=== PATIENT | male | born 1950 | race Caucasian/White ===

== ENCOUNTER → 2016-12-31 | Outpatient (CLI) | payer MEDICARE, OTHER ==
[2016-12-31 11:52] LABS: INR 2.5; PROTHROMBIN TIME (PATIENT) 27.6 SECONDS (9.6-11.5)
== END | disposition home or self-care (01) ==
LOC: CLAB 10:53
PROVIDERS: Orthopaedic Surgery
DX: Z51.81 Encounter for therapeutic drug level monitoring (principal); Z96.651 Presence of right artificial knee joint; Z79.01 Long term (current) use of anticoagulants
CPT/HCPCS: 36415; 85610

== ENCOUNTER → 2017-01-03 | Outpatient (CLI) | payer MEDICARE, OTHER ==
[2017-01-03 11:54] LABS: INR 2.3; PROTHROMBIN TIME (PATIENT) 25.2 SECONDS (9.6-11.5)
== END | disposition home or self-care (01) ==
LOC: CLAB 10:56
PROVIDERS: Orthopaedic Surgery
DX: Z51.81 Encounter for therapeutic drug level monitoring (principal); Z79.01 Long term (current) use of anticoagulants; Z96.651 Presence of right artificial knee joint
CPT/HCPCS: 36415; 85610

== ENCOUNTER → 2017-01-07 | Outpatient (CLI) | payer MEDICARE, OTHER ==
[2017-01-07 11:40] LABS: INR 2.7; PROTHROMBIN TIME (PATIENT) 29.4 SECONDS (9.6-11.5)
== END | disposition home or self-care (01) ==
LOC: CLAB 10:47
PROVIDERS: Orthopaedic Surgery
DX: Z51.81 Encounter for therapeutic drug level monitoring (principal); Z79.01 Long term (current) use of anticoagulants
CPT/HCPCS: 36415; 85610